=== PATIENT | male | born 1955 | race Caucasian/White ===

== ENCOUNTER 2017-10-08 05:44 | Day surgery (SDC) | payer OTHER ==
[2017-10-08] MEDS ORDERED: PHENYLEPHRINE HCL IJ ONE (05:45)
[2017-10-08] MEDS ORDERED: DIPRIVAN 200 MG/20 ML IV ONE (05:45)
[2017-10-08] MEDS ORDERED: Lactated Ringers 1,000 ML IV SCH (06:30)
[2017-10-08 08:06] VITALS: O2SAT 94
[2017-10-08 08:25] VITALS: BP 128/70; PULSE 72
--- NOTE | 2017-10-08 13:36 | OP ---
SURGERY DATE/TIME: 10/08/2017 0703 PREOPERATIVE DIAGNOSIS: Screening colonoscopy. POSTOPERATIVE DIAGNOSIS: Normal colon. PROCEDURE: Colonoscopy. SURGEON: Boris Maher M.D. ANESTHESIA: MAC by Cecil Calvert CRNA. ESTIMATED BLOOD LOSS: None. SPECIMENS: None. DESCRIPTION OF PROCEDURE: After informed written consent was obtained, the patient was taken to the endoscopy suite. He underwent monitored anesthesia and digital rectal exam showed normal sphincter tone. The scope was inserted into the rectum and sequentially the entire colonic mucosa was traversed. The level of cecum was reached and verified with direct visualization of ileocecal valve. Upon withdrawal careful mucosal inspection revealed no gross abnormalities. Prep was noted to be fair. Prior to withdrawal retroflexion showed no internal lesions. The scope was removed and the patient was transferred to the recovery room in excellent condition.
== END 2017-10-08 08:25 | disposition home or self-care (01) ==
LOC: SDC 05:44
PROVIDERS: ATTEND Family Medicine
PROC: 0DJD8ZZ Inspection of Lower Intestinal Tract, Via Natural or Artificial Opening Endoscopic (ICD-10-PCS; principal; 2017-10-08)
DX: Z12.11 Encounter for screening for malignant neoplasm of colon (principal)
CPT/HCPCS: 00812; J2370; J2704

== ENCOUNTER 2020-01-04 19:38 | Observation (INO) | payer BC ==
[2020-01-04] MEDS ORDERED: Adacel Vial IM ONE ×2 (19:49→19:54)
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
[2020-01-04] MEDS ORDERED: Hydromorphone 1 mg/ml Ampule IV ONE (19:58)
[2020-01-04 19:59] LABS: Absolute Neutrophil Ct (ANC) 4.46 (1.4-6.9); BASOPHIL % 0.4 % (0.0-0.4); Basophil (Absolute #) 0.03 (0-0.4); Eosinophil % 4.6 % (0.00-5.0); Eosinophil (Absolute #) 0.39 (0-0.5); Hematocrit 39.8 % (42-50); Hemoglobin 12.9 gm/dl (12.5-18.0); Lymphocyte (Absolute #) 2.72 (1.0-4.6); Lymphocytes % 32.1 % (24.0-44.0); Mean Cell Volume 96.6 fl (78-100); Mean Corpuscular Hemoglobin 31.3 pg (26-32); Mean Corpuscular Hgb Concent. 32.4 g/dl (32-36); Mean Platelet Volume 9.1 fl (7.5-11.0); Monocyte (Absolute #) 0.87 (0.0-1.3); Monocytes % 10.3 % (0.0-12.0); Neutrophil % 52.6 % (36.0-66.0); Platelet Count 262 K/mm3 (150-450); Red Blood Count 4.12 M/mm3 (4.1-5.6); Red Cell Distribution Width 13.6 % (11.5-14.0); White Blood Count 8.5 K/mm3 (4.0-10.5)
[2020-01-04] MEDS ORDERED: Hydromorphone 1 mg/ml Ampule ONE (19:59)
[2020-01-04 20:12] LABS: ALBUMIN 4.8 g/dL (3.5-5.0); ALKALINE PHOSPHATASE 71 U/L (38-126); ANION GAP 16.3 MEQ/L (5-15); BLOOD UREA NITROGEN 20 mg/dL (9-20); CHLORIDE 102 mmol/L (98-107); Calcium 9.6 mg/dL (8.4-10.2); Carbon Dioxide 25 mmol/L (22-30); Creatinine 1 0.92 mg/dL (0.66-1.25); Glucose 88 mg/dL (74-106); Potassium 3.8 mmol/L (3.5-5.1); SGOT/AST 34 U/L (17-59); SGPT/ALT 24 U/L (0-50); SODIUM 140 mmol/L (137-145); Total Protein 8.2 g/dL (6.3-8.2)
[2020-01-04 20:14] LABS: ETHYL ALCOHOL < 10 mg/dL (0-10)
[2020-01-04 20:41] LABS: Appearance CLEAR (CLEAR); Bilirubin NEGATIVE (NEGATIVE); Blood SMALL Ery/ul (0-5); Glucose NEGATIVE (NEGATIVE); Ketones NEGATIVE (NEGATIVE); Leukocyte Esterase NEGATIVE (NEGATIVE); Mucus SLIGHT /HPF (NEGATIVE); Nitrite NEGATIVE (NEGATIVE); Protein,Urine Dip NEGATIVE (Negative); Specific Gravity 1.009 (1.005-1.025); Urobilinogen NEGATIVE mg/dL (0-1)
[2020-01-04 20:46] LABS: ABO TYPING O; Antibody Screen NEGATIVE (NEGATIVE); RH TYPING POSITIVE
[2020-01-04 20:54] LABS: Amphetamine,Urine NEGATIVE (NEGATIVE); Barbiturate,Urine NEGATIVE (NEGATIVE); Benzodiazepine,Urine NEGATIVE (NEGATIVE); Cocaine,Urine NEGATIVE (NEGATIVE); Methadone,Urine NEGATIVE (NEGATIVE); Opiate,Urine POSITIVE (NEGATIVE); PCP,Urine NEGATIVE (NEGATIVE); THC,Urine NEGATIVE (NEGATIVE)
[2020-01-04] MEDS ORDERED: Hydromorphone 1 mg/ml Ampule IV SCH (23:08)
[2020-01-04] MEDS: DILAUDID 2 MG INJECTION IV SCH (23:33)
[2020-01-05] MEDS: DILAUDID 2 MG INJECTION IV SCH ×2 (03:31→07:44)
[2020-01-05 05:24] LABS: BASOPHIL % 0.4 % (0.0-0.4); Basophil (Absolute #) 0.03 (0-0.4); Eosinophil % 5.3 % (0.00-5.0); Eosinophil (Absolute #) 0.39 (0-0.5); Hematocrit 39.2 % (42-50); Hemoglobin 12.5 gm/dl (12.5-18.0); Lymphocyte (Absolute #) 2.03 (1.0-4.6); Lymphocytes % 27.5 % (24.0-44.0); Mean Cell Volume 98.2 fl (78-100); Mean Corpuscular Hemoglobin 31.3 pg (26-32); Mean Corpuscular Hgb Concent. 31.9 g/dl (32-36); Mean Platelet Volume 9.1 fl (7.5-11.0); Monocyte (Absolute #) 0.92 (0.0-1.3); Monocytes % 12.5 % (0.0-12.0); Neutrophil % 54.3 % (36.0-66.0); Platelet Count 247 K/mm3 (150-450); Red Blood Count 3.99 M/mm3 (4.1-5.6); Red Cell Distribution Width 13.8 % (11.5-14.0); White Blood Count 7.4 K/mm3 (4.0-10.5)
[2020-01-05 05:53] LABS: ALBUMIN 4.2 g/dL (3.5-5.0); ALKALINE PHOSPHATASE 54 U/L (38-126); ANION GAP 11.3 MEQ/L (5-15); BLOOD UREA NITROGEN 19 mg/dL (9-20); CHLORIDE 102 mmol/L (98-107); Calcium 9.2 mg/dL (8.4-10.2); Carbon Dioxide 30 mmol/L (22-30); Creatinine 1 1.01 mg/dL (0.66-1.25); Glucose 122 mg/dL (74-106); Potassium 3.6 mmol/L (3.5-5.1); SGOT/AST 29 U/L (17-59); SGPT/ALT 22 U/L (0-50); SODIUM 140 mmol/L (137-145); Total Protein 7.3 g/dL (6.3-8.2)
[2020-01-05 05:55] LABS: TROPONIN < 0.012 ng/mL (0.000-0.034)
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
[2020-01-05] MEDS ORDERED: NORCO 5/325 MG PO PRN (11:15)
[2020-01-05] MEDS ORDERED: Coreg 6.25 MG PO SCH (11:15)
[2020-01-05] MEDS ORDERED: Cozaar 50 MG PO SCH (11:30)
[2020-01-05] MEDS ORDERED: ECOTRIN 81 MG PO SCH (11:30)
[2020-01-05] MEDS ORDERED: Mobic 7.5 MG PO SCH (11:30)
[2020-01-05] MEDS ORDERED: Apresoline 25 MG TABLET PO SCH (11:30)
[2020-01-05] MEDS ORDERED: THERAGRAN MULTIVITAMIN PO SCH (11:30)
[2020-01-05] MEDS ORDERED: NEURONTIN 300 MG PO SCH (11:30)
[2020-01-05] MEDS ORDERED: NORVASC 5 MG PO SCH (11:30)
[2020-01-05 12:26] VITALS: BP 136/63; PULSE 70; O2SAT 92
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
[2020-01-05] MEDS ORDERED: ZOCOR 20MG PO SCH (22:00)
[2020-01-05] MEDS ORDERED: Zanaflex 4 MG PO SCH (22:00)
[2020-01-05] MEDS ORDERED: NON-FORMULARY ITEM (Hydralazine Hcl [Hydralazine Hcl] 50 MG) PO SCH (22:00)
[2020-01-05] MEDS ORDERED: NON-FORMULARY ITEM (Pravastatin Sodium [Pravachol] 20 MG) PO SCH (22:00)
[2020-01-06] MEDS ORDERED: NON-FORMULARY ITEM (Multivitamin [Multivitamins] 1 EACH) PO SCH (10:00)
[2020-01-06] MEDS ORDERED: NON-FORMULARY ITEM (Meloxicam 15 Mg [Meloxicam 15 Mg] 15 MG) PO SCH (10:00)
[2020-01-06] MEDS ORDERED: NON-FORMULARY ITEM (Amlodipine Besylate 10 Mg [Norvasc 10 Mg] 10 MG) PO SCH (10:00)
[2020-01-10] MEDS ORDERED: VITAMIN D2 PO SCH (10:00)
== END 2020-01-05 12:27 | disposition home or self-care (01) ==
LOC: ED 19:38 → MED SURG 22:55
PROVIDERS: ADMIT Family Medicine; ATTEND Family Medicine
DX: M54.9 Dorsalgia, unspecified (principal); R11.2 Nausea with vomiting, unspecified; R51 Headache; R07.9 Chest pain, unspecified; M47.812 Spondylosis without myelopathy or radiculopathy, cervical region; S00.03XA Contusion of scalp, initial encounter; I63.81 Other cerebral infarction due to occlusion or stenosis of small artery; I10 Essential (primary) hypertension; V43.52XA Car driver injured in collision with other type car in traffic accident, initial encounter; Z79.899 Other long term (current) drug therapy
CPT/HCPCS: 36000; 36415; 70450; 71260; 72125; 74177; 80053; 80307; 81001; 82962; 84484; 85025; 86850; 86900; 86901; 90471; 93005; 93041; 93268; 94660; 94762; 96374; 99285; G0378; 90715; J1170; A9270-GY; G0480

== ENCOUNTER 2021-04-09 06:01 | Day surgery (SDC) | payer BC ==
[2021-04-09] MEDS ORDERED: Lactated Ringers 1,000 ML IV ONE (06:51)
[2021-04-09] MEDS ORDERED: Lactated Ringers 1,000 ML IV SCH (07:00)
[2021-04-09] MEDS ORDERED: DIPRIVAN 200 MG/20 ML IV ONE (07:35)
[2021-04-09 08:37] VITALS: PULSE 70
[2021-04-09 09:10] VITALS: BP 137/76; O2SAT 95
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
== END 2021-04-09 08:40 | disposition home or self-care (01) ==
LOC: SDC 06:01
PROVIDERS: ATTEND Family Medicine
DX: D64.9 Anemia, unspecified (principal); I10 Essential (primary) hypertension; Z79.899 Other long term (current) drug therapy; Z79.82 Long term (current) use of aspirin
CPT/HCPCS: J2704

== ENCOUNTER 2023-04-18 19:09 | Emergency (ER) | payer MEDICARE ==
[2023-04-18 19:33] LABS: Absolute Neutrophil Ct (ANC) 3.86 x10^3/uL (1.4-6.9); BASOPHIL % 0.6 % (0.0-0.4); Basophil (Absolute #) 0.04 x10^3/uL (0-0.4); Eosinophil % 4.4 % (0.00-5.0); Hematocrit 38.9 % (42-50); Hemoglobin 12.7 g/dL (12.5-18.0); IMMATURE GRAN # 0.01 x10^3u/L (0.00-0.03); IMMATURE GRAN % 0.1 % (0.00-0.4); Lymphocyte (Absolute #) 2.06 x10^3/uL (1.0-4.6); Lymphocytes % 30.1 % (24.0-44.0); Mean Corpuscular Hemoglobin 32.3 pg (26-32); Mean Corpuscular Hgb Concent. 32.6 g/dL (32-36); Mean Platelet Volume 9.1 fL (7.5-11.0); Monocyte (Absolute #) 0.58 x10^3/uL (0.0-1.3); Monocytes % 8.5 % (0.0-12.0); Neutrophil % 56.3 % (36.0-66.0); Platelet Count 265 x10^3/uL (150-450); Red Blood Count 3.93 x10^6/uL (4.1-5.6); Red Cell Distribution Width 12.8 % (11.5-14.0); White Blood Count 6.9 x10^3/uL (4.0-10.5)
[2023-04-18 19:42] LABS: ALBUMIN 4.8 g/dL (3.5-5.0); ANION GAP 16.4 MEQ/L (5-15); BILIRUBIN,TOTAL 0.5 mg/dL (0.2-1.3); Calcium 9.3 mg/dL (8.4-10.2); Creatinine 1 1.35 mg/dL (0.66-1.25); EST GLOMERULAR FILTRATION RATE 56.2 ML/MIN; Potassium 3.9 mmol/L (3.5-5.1)
[2023-04-18 19:44] LABS: INR 0.91 (0.8-3.0); PTT 27.8 SECONDS (25.1-36.5)
--- NOTE | 2023-04-18 20:02 | ERPHSYRPT ---
- History of Present Illness Source: patient, other () Exam Limitations: no limitations Patient Subjective Stated Complaint: pt states that he was driving his daughters car when he began to have numbness and tingling to rt knee and below. 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 Pt denies focal weakness and states that the numbness is improving. He has also had some L sternal chest pain which is described as "pressure" and 4/10. The pain was accompanied by nausea wo vomiting/dys pnea/diaphoresis. PMH includes hypertension/hyperlipidemia. Timing/Duration: other (1629) Severity: mild Character of Deficits: altered sensation Deficits: no difficulties Baseline/Normal Cognition: alert oriented x 3 Current Cognition: alert oriented x 3 Baseline Gait: walks w/o assistance Associated Symptoms: numbness/tingling in legs/feet (R hand/RLE/R foot), paresthesia Allergies/Adverse Reactions: morphine Allergy (Mild, Verified 04/18/23 19:10) Rash oxycodone [From OxyContin] Allergy (Mild, Verified 04/18/23 19:10) Rash tramadol Allergy (Mild, Verified 04/18/23 19:10) Hives Home Medications: Carvedilol 3.125 mg [Coreg 3.125 MG] 6.25 mg PO BID 10/03/17 [History] Pravastatin Sodium [Pravachol] 80 mg PO HS 10/03/17 [History] Tizanidine HCl 4 mg [Zanaflex 4 MG] 8 mg PO HS 10/03/17 [History] Gabapentin 400 mg PO QID 01/04/20 [History] Ergocalciferol (Vitamin D2) [Vitamin D2] 1,250 mcg PO WEEKLY 04/02/21 [History] Hydrocodone/Acetaminophen [Hydrocodone-Acetamin 5-325 mg] 325 mg PO UD 04/02/21 [History] Mv-Min/Folic/K1/Lycopen/Lutein [Centrum Silver Men Tablet] 1 each PO DAILY 04/02/21 [History] Irvona-3 Fatty Acids/Fish Oil [Fish Oil 1,000 mg Capsule] 1 each PO DAILY 04/02/21 [History] Omeprazole 20 mg PO DAILY 04/02/21 [History] tadalafiL [Cialis] 10 mg PO UD 04/02/21 [History] Allopurinol 100 mg [Zyloprim 100 mg] 100 mg PO DAILY 04/18/23 [History] Amlodipine Besylate [Norvasc] 2.5 mg PO DAILY 04/18/23 [History] Arginine [l-Arginine] 1,000 mg PO DAILY 04/18/23 [History] Duloxetine HCl 60 mg PO DAILY 04/18/23 [History] Famotidine 40 mg PO DAILY 04/18/23 [History] Losartan/Hydrochlorothiazide [Losartan-Hctz 100-12.5 mg Tab] 1 each PO DAILY 04/18/23 [History] Meloxicam 15 mg [Meloxicam 15 MG] 15 mg PO DAILY 04/18/23 [History] Ranolazine 500 MG [Ranexa 500 MG] 500 mg PO BID 04/18/23 [History] Semaglutide [Ozempic] 0.25 mg SQ WEEKLY 04/18/23 [History] Hx Tetanus, Diphtheria Vaccination/Date Given: Yes Hx Influenza Vaccination/Date Given: Yes Hx Pneumococcal Vaccination/Date Given: Yes Travel Risk - International Travel Have you traveled outside of the country in past 3 weeks: No - Coronavirus Screening Are you exhibiting any of the following symptoms?: No Close contact with a COVID-19 positive Pt in past 14-21 Days: No - Vaccine Status Have you recieved a Covid-19 vaccination: Yes Freezer Assistant: Muut - Vaccination Dates Date of 2cond Vaccination (if applicable): 11/17/20 - Review of Systems Constitutional: No Symptoms Eyes: No Symptoms Ears, Nose, & Throat: No Symptoms Respiratory: No Symptoms Cardiac: No Symptoms Abdominal/Gastrointestinal: No Symptoms Genitourinary Symptoms: No Symptoms Musculoskeletal: No Symptoms Skin: No Symptoms Psychological: No Symptoms Endocrine: No Symptoms Hematologic/Lymphatic: No Symptoms Immunological/Allergic: No Symptoms - Past Medical History Pertinent Past Medical History: Yes Neurological History: No Pertinent History ENT History: Cataracts Cardiac History: Coronary Artery Disease, Hypertension Respiratory History: Bronchitis, Sleep Apnea Endocrine Medical History: No Pertinent History Musculoskeletal History: Arthritis, Other GI Medical History: GERD History: No Pertinent History Psycho-Social History: No Pertinent History Male Reproductive Disorders: No Pertinent History - Past Surgical History Past Surgical History: Yes Neuro Surgical History: No Pertinent History Cardiac: No Pertinent History, Cardiac Catheterization Respiratory: No Pertinent History Gastrointestinal: No Pertinent History Genitourinary: No Pertinent History Musculoskeletal: Other Male Surgical History: Other Other Surgical History: pt had cyst removed from left testicle. rotator cuff repair x2 on right, and 1x on left. left knee ligament replacement.Back surgry x two,Right foot surgery - Social History Smoking Status: Former smoker Exposure to second hand smoke: No Drug Use: none Patient Lives Alone: No Significant Family History: no pertinent family hx - Nursing Vital Signs Nursing Vital Signs: Initial Vital Signs Temperature 99.8 F 04/18/23 19:09 Pulse Rate 78 04/18/23 19:09 Respiratory Rate 16 04/18/23 19:09 Blood Pressure 128/69 04/18/23 19:09 O2 Sat by Pulse Oximetry 98 04/18/23 19:09 Pain Scale Pain Intensity 0 WNL - Jose Coma Scale Best Eye Response (Jose): (4) open spontaneously Best Verbal Response ([place]): (5) oriented Best Motor Response ([place]): (6) obeys commands Jose Total: 15 - Physical Exam General Appearance: no apparent distress Eye Exam: bilateral eye: normal inspection, PERRL, EOMI Ears, Nose, Throat Exam: normal ENT inspection, TMs normal, pharynx normal, moist mucous membranes Neck Exam: normal inspection, non-tender, supple, full range of motion, No meningismus, No mass, No Brudzinski, No Kernig's, No carotid bruit Respiratory: normal breath sounds, lungs clear, airway intact, No respiratory distress Cardiovascular: regular rate/rhythm, normal heart sounds, normal peripheral pulses, capillary refill <2 sec, No murmur Gastrointestinal: soft, normal bowel sounds, No tenderness Back Exam: normal inspection, normal range of motion, No CVA tenderness, No vertebral tenderness Extremity Exam: normal inspection, normal range of motion Peripheral Pulses: carotid (R): 2+, carotid (L): 2+, dorsalis-pedis (R): 2+, dorsalis-pedis (L): 2+ Mental Status: alert, 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 x 3, 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 Exam: normal hearing, normal speech, PERRL Coordination/Gait: normal finger to nose, normal cerebellar function, negative Romberg's sign Motor/Sensory: no motor deficit, no sensory deficit, no pronator drift, negative Babinski's sign DTR: bicep (R): 2+, bicep (L): 2+, knee (R): 2+, knee (L): 2+ Skin Exam: normal color, warm, dry, No rash SpO2 Interpretation: normal SpO2: 95 O2 Delivery: Room Air - Course Nursing assessment & vital signs reviewed: Yes EKG Interpreted by Me: RATE (NSR/IVCD/Normal QT-QTc/No acute ST segment changes) - CT Exams Head CT Interpretation: Discussed w/radiologist (Old R basal ganglia infarct/CTA head-mild arteriosclerotic dz B parasellar ICA's wo critical stenosis) Other CT Interpretation: Discussed w/radiologist (CTA of neck-Minimal carotid bulb dz wo critical stenosis L>R) Ordered Tests: Active Orders 24 hr Category Date Time Status EKG-ER Only STAT Care 04/18/23 19:17 Completed IV Insertion STAT Care 04/18/23 19:20 Completed NPO (ED) STAT Care 04/18/23 19:[address] ANGIOGRAPHY NECK [CT] Stat Exams 04/18/23 20:34 Taken CTA HEAD W AND/OR WO CONTRAST [CT] Stat Exams 04/18/23 20:34 Taken HEAD WITHOUT CONTRAST [CT] Stat Exams 04/18/23 19:18 Taken CBC W DIFF Stat Lab 04/18/23 19:20 Completed CMP Stat Lab 04/18/23 19:20 Completed PROTIME WITH INR Stat Lab 04/18/23 19:20 Completed PTT Stat Lab 04/18/23 19:20 Completed TROPONIN Q4H Lab 04/18/23 22:15 Completed TROPONIN Q4H Lab 04/19/23 01:45 Ordered TROPONIN Q4H Lab 04/19/23 05:45 Ordered Medication Summary Discontinued Medications Generic Name Dose Route Start Last Admin Trade Name Freq PRN Reason Stop Dose Admin Aspirin 324 mg 04/18/23 22:32 04/18/23 22:34 Aspirin 81 Mg Tab.Chew PO 04/18/23 22:33 324 mg STAT ONE Administration Aspirin Confirm 04/18/23 22:33 Aspirin 81 Mg Tab.Chew Administered 04/18/23 22:34 Dose 324 mg .ROUTE .STK-MED ONE Lab/Rad Data: Laboratory Result Diagrams 04/18/23 19:20 04/18/23 19:20 Laboratory Results 04/18/23 04/18/23 04/18/23 Range/Units 22:15 19:20 19:20 WBC (4.0-10.5) x10^3/uL RBC (4.1-5.6) x10^6/uL Hgb (12.5-18.0) g/dL Hct (42-50) % MCV (78-100) fL MCH (26-32) pg MCHC (32-36) g/dL RDW (11.5-14.0) % Plt Count (150-450) x10^3/uL MPV (7.5-11.0) fL Gran % (36.0-66.0) % Immature Gran % (Auto) (0.00-0.4) % Nucleat RBC Rel Count (0.00-0.1) % Eos # (Auto) (0-0.5) x10^3/uL Immature Gran # (Auto) (0.00-0.03) x10^3u/L Absolute Lymphs (auto) (1.0-4.6) x10^3/uL Absolute Monos (auto) (0.0-1.3) x10^3/uL Absolute Nucleated RBC (0.00-0.01) x10^3u/L Lymphocytes % (24.0-44.0) % Monocytes % (0.0-12.0) % Eosinophils % (0.00-5.0) % Basophils % (0.0-0.4) % Absolute Granulocytes (1.4-6.9) x10^3/uL Basophils # (0-0.4) x10^3/uL PT 10.0 (9.4-12.5) SECONDS INR 0.91 (0.8-3.0) APTT 27.8 (25.1-36.5) SECONDS Sodium 140 (137-145) mmol/L Potassium 3.9 (3.5-5.1) mmol/L Chloride 102 (98-107) mmol/L Carbon Dioxide 26 (22-30) mmol/L Anion Gap 16.4 H (5-15) MEQ/L BUN 24 H (9-20) mg/dL Creatinine 1.35 H (0.66-1.25) mg/dL Estimated GFR 56.2 ML/MIN Glucose 131 H (74-106) mg/dL Calcium 9.3 (8.4-10.2) mg/dL Total Bilirubin 0.50 (0.2-1.3) mg/dL AST 36 (17-59) U/L ALT 25 (0-50) U/L Alkaline Phosphatase 76 (38-126) U/L Troponin I < 0.012 (0.000-0.034) ng/mL Serum Total Protein 8.0 (6.3-8.2) g/dL Albumin 4.8 (3.5-5.0) g/dL 04/18/23 Range/Units 19:20 WBC 6.9 (4.0-10.5) x10^3/uL RBC 3.93 L (4.1-5.6) x10^6/uL Hgb 12.7 (12.5-18.0) g/dL Hct 38.9 L (42-50) % MCV 99.0 (78-100) fL MCH 32.3 H (26-32) pg MCHC 32.6 (32-36) g/dL RDW 12.8 (11.5-14.0) % Plt Count 265 (150-450) x10^3/uL MPV 9.1 (7.5-11.0) fL Gran % 56.3 (36.0-66.0) % Immature Gran % (Auto) 0.1 (0.00-0.4) % Nucleat RBC Rel Count 0.0 (0.00-0.1) % Eos # (Auto) 0.30 (0-0.5) x10^3/uL Immature Gran # (Auto) 0.01 (0.00-0.03) x10^3u/L Absolute Lymphs (auto) 2.06 (1.0-4.6) x10^3/uL Absolute Monos (auto) 0.58 (0.0-1.3) x10^3/uL Absolute Nucleated RBC 0.00 (0.00-0.01) x10^3u/L Lymphocytes % 30.1 (24.0-44.0) % Monocytes % 8.5 (0.0-12.0) % Eosinophils % 4.4 (0.00-5.0) % Basophils % 0.6 (0.0-0.4) % Absolute Granulocytes 3.86 (1.4-6.9) x10^3/uL Basophils # 0.04 (0-0.4) x10^3/uL PT (9.4-12.5) SECONDS INR (0.8-3.0) APTT (25.1-36.5) SECONDS Sodium (137-145) mmol/L Potassium (3.5-5.1) mmol/L Chloride (98-107) mmol/L Carbon Dioxide (22-30) mmol/L Anion Gap (5-15) MEQ/L BUN (9-20) mg/dL Creatinine (0.66-1.25) mg/dL Estimated GFR ML/MIN Glucose (74-106) mg/dL Calcium (8.4-10.2) mg/dL Total Bilirubin (0.2-1.3) mg/dL AST (17-59) U/L ALT (0-50) U/L Alkaline Phosphatase (38-126) U/L Troponin I (0.000-0.034) ng/mL Serum Total Protein (6.3-8.2) g/dL Albumin (3.5-5.0) g/dL - Progress Progress: improved Progress Note: 04/19/23 00:32 Nursing note and vital signs reviewed No food or housing insecurities noted Additional history per All labs reviewed and shared w pt/ All Ct/CTA results reviewed and shared w pt/ Tele-neuro consult-Pt needs MRI/MRA of head/neck along w carotid dopplers/ECHO Pt accepted by Dr. Cummins at [facility] Pt wo focal weakness during stay RLE/R hand "numbness" rapidly improving when he arrived Counseled pt/family regarding: lab results, diagnosis, rad results Medical Desision Making - Independent Historian Additional History obtained from: Spouse - Diagnostic Testing Radiological Interpretation: Discussed w/ radiologist - Risk of complications The pt has a high risk of morbidity or mortality based on: Decision regarding hospitilization or escalation of hosp level of care - Departure Departure Disposition: Transfer Clinical Impression: Paresthesia Condition: Stable Critical Care Time: No Referrals: NEGIN FERNANDEZ MD [Primary Care Provider] - Follow up/PCP as directed
[2023-04-18 21:21] VITALS: RESP 19
[2023-04-18] MEDS ORDERED: BABY ASPIRIN 81 MG CHEW PO ONE (22:32)
[2023-04-18] MEDS ORDERED: BABY ASPIRIN 81 MG CHEW ONE (22:33)
[2023-04-18 23:02] VITALS: BP 151/83; PULSE 73; TEMP 97.5
[2023-04-18 23:40] VITALS: O2SAT 95
--- NOTE | 2023-04-19 07:36 | XRAY ---
Indication: Right upper and right lower extremity numbness. Multiple contiguous axial images obtained through the head without contrast. Comparison: January 04, 2020 Again age-appropriate global atrophy and remote lacunar infarct right basal ganglia. No acute intracranial hemorrhage, abnormal extra-axial fluid collection, or mass effect. Fourth ventricle is midline without hydrocephalus. Abarca-white matter differentiation preserved. Bony calvarium intact. Visualized paranasal sinuses and mastoid air cells are clear. Impression: Stable remote lacunar infarct right basal ganglia. No new or acute intracranial abnormalities.
--- NOTE | 2023-04-19 07:43 | XRAY ---
Indication: Right upper and right lower extremity numbness. Conventional contrast enhanced CTA neck performed using 100 cc Isovue 370 contrast. 2-D sagittal and coronal reformatted images obtained. Additional 3-D reformatted images obtained using a separate workstation. Comparison: None Visualized aortic arch is normal with normal widely patent branch right brachiocephalic, left common carotid, and left subclavian arteries. Examination of the right carotid circulation demonstrates very minimal eccentric calcified plaque at the level of the bulb slightly extending into the origin of the internal carotid artery. Remaining common carotid and external carotid arteries are normal in CTA appearance. Examination of the left carotid circulation demonstrates some minimal calcified plaquing at the level of the bulb slightly extending. Mild heterogeneous plaquing origin/proximal internal carotid artery producing approximately 50% stenosis. Remaining common carotid and external carotid arteries are normal in CTA appearance. Vertebral arteries are bilaterally patent with the left slightly larger in caliber. Visualized soft tissues demonstrates a few centimeter/subcentimeter cervical lymph nodes bilaterally, none pathologically enlarged. Thyroid gland enhances homogeneously. Parotid and submandibular glands are bilaterally symmetric. Supra and infraglottic airway widely patent. Visualized osseous structures intact with osteopenia and minimal/mild multilevel degenerative changes greatest at C3-C4. Patient is edentulous. Lung apices demonstrates dependent atelectasis and tiny right upper lobe [place] granuloma. Impression: 1. Minimal arteriosclerotic disease right carotid circulation as detailed without critical stenosis/obstruction. 2. Mild arteriosclerotic disease left carotid circulation as detailed without critical stenosis/obstruction. 3. Normal CTA vertebral arteries. 4. Incidental chronic bony findings and right lung calcified granuloma.
--- NOTE | 2023-04-19 07:47 | XRAY ---
Indication: Right upper and right lower extremity numbness. Conventional contrast enhanced CTA head performed using 100 cc Isovue 370 contrast. 2-D sagittal and coronal reformatted images obtained. Additional 3-D reformatted images obtained using a separate workstation. Comparison: None Distal parasellar internal carotid arteries demonstrates mild scattered arteriosclerotic calcifications bilaterally. No critical stenosis, obstruction, or AV malformation. Normal carotid terminus with normal branching A1 and M1 segments bilaterally. More distal anterior cerebral and middle cerebral arteries are normal in CTA appearance bilaterally. Incidental anatomic variant for origin right posterior cerebral artery. Posterior circulation demonstrates normal CTA appearance to the basilar, left/right posterior cerebral, left/right superior cerebellar, and left/right anterior inferior cerebellar arteries. Venous sinuses/drainage unremarkable. No abnormal enhancing intra or extra-axial mass. Impression: Mild arteriosclerotic disease both parasellar internal carotid arteries without critical stenosis/obstruction. Remaining CTA head with contrast exam is negative.
== END 2023-04-19 | disposition short-term general hospital (02) ==
LOC: ED 19:09
DX: R20.2 Paresthesia of skin (principal); R07.9 Chest pain, unspecified; R11.0 Nausea; I10 Essential (primary) hypertension; E78.5 Hyperlipidemia, unspecified; Z79.85 Long-term (current) use of injectable non-insulin antidiabetic drugs; Z79.899 Other long term (current) drug therapy
CPT/HCPCS: 36000; 36415; 70450; 70496; 70498; 80053; 84484; 85025; 85610; 85730; 93005; 99285; A9270-GY